=== PATIENT | female | born 1990 | race Two or more races ===

== ENCOUNTER 2024-11-10 12:48 | Emergency (ER) | payer OTHER ==
[~2024-11-10] VITALS: Ht 162.6 cm; Wt 70.9 kg
[2024-11-10 13:12] VITALS: BP 102/51; PULSE 62; RESP 16; TEMP 98.3; O2SAT 98
[2024-11-10 13:33] LABS: COVID AG,FIA SOURCE NASAL SWAB
[2024-11-10 13:53] LABS: SARS-COV2 (COVID) ANTIGEN,FIA Negative (Negative)
[2024-11-10 13:54] LABS: INFLUENZA TYPE A NEGATIVE FOR TYPE A (NEGATIVE); INFLUENZA TYPE B NEGATIVE FOR TYPE B (NEGATIVE)
[2024-11-10] MEDS ORDERED: ACET-3385 PO (14:54)
[2024-11-10] MEDS ORDERED: IBUP-1492 PO (14:54)
[2024-11-10] MEDS: IBUPROFEN 600 MG TABLET PO ONE (14:58)
== END 2024-11-10 15:11 | disposition home or self-care (01) ==
LOC: EMS 12:50
DX: J02.8 Acute pharyngitis due to other specified organisms (principal); B97.89 Other viral agents as the cause of diseases classified elsewhere; Z20.822 Contact with and (suspected) exposure to COVID-19
CPT/HCPCS: 87430; 87804; 99283